=== PATIENT | male | born 1950 | race Caucasian/White ===

== ENCOUNTER 2019-08-10 19:32 | Emergency (ER) | payer BC ==
[~2019-08-10] VITALS: Ht 180.3 cm; Wt 83.9 kg
[2019-08-10 19:43] VITALS: BP 144/107
== END 2019-08-10 20:22 | disposition home or self-care (01) ==
LOC: M.ERS 19:32
DX: S62.396A Other fracture of fifth metacarpal bone, right hand, initial encounter for closed fracture (principal); F17.210 Nicotine dependence, cigarettes, uncomplicated; Z91.012 Allergy to eggs; Z91.018 Allergy to other foods; W18.39XA Other fall on same level, initial encounter; Y93.89 Activity, other specified; Y92.89 Other specified places as the place of occurrence of the external cause; Y99.8 Other external cause status